=== PATIENT | female | born 1965 | race Caucasian/White ===

== ENCOUNTER 2019-12-07 11:24 | Observation (INO) | payer OTHER ==
[~2019-12-07] VITALS: Ht 162.6 cm; Wt 76.7 kg
--- NOTE | ~2019-12-07 | CON ---
[address] [address] CONSULTATION Name: SCOTT QUIÑONES Room: [address] [place]#: [id number] Admission: 12/07/19 Attend Phys: Yuki Horton Discharge: Date of : 63 Report #: [id number] THIS REPORT FOR: //name// cc: Kirill Gunter MD, Tuongvan T. MD ~ THIS REPORT FOR: //name// CC: Kirill Min DATE OF SERVICE: 12/08/2019 HISTORY OF PRESENT ILLNESS: This is a 54-year-old female patient who was admitted yesterday with headache. The patient was seen yesterday and today and this is a combined note. I discussed the patient with Dr. Min, the admitting physician. This patient was admitted with headache. She said that the headache started about a month ago, but became worse recently. She indicated that it started in relation to starting some antihypertensive. She also started statin and she also think that may be contributing to the patient's problem. In any event, the headache has fully resolved this morning. Headache was generalized without any aggravating or relieving factor. REVIEW OF SYSTEMS: Indicate that this patient has a history of rheumatoid arthritis. 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 She is on treatment for that. She is also treatment for fibromyalgia. She takes Cymbalta for a combination of depression and fibromyalgia. She is also on gabapentin. She indicates she is on gabapentin because of the fibromyalgia. That was a relevant 14-point review of system. PAST MEDICAL HISTORY: Positive for rheumatoid arthritis, but she has no history of vasculitis. She did have some nausea, vomiting, which has also resolved. She has a history of enlarged heart, ADHD, but all those histories are poorly defined. FAMILY HISTORY: Unremarkable. SOCIAL HISTORY: She smokes. PHYSICAL EXAMINATION: The patient's examination was carried out yesterday and today. Today, she is alert, responsive, able to follow simple and complex command. Cranial nerve examinations appear unremarkable. Her memory looks unremarkable. She moves all 4 extremities. She has a good position sense. Her reflexes are well elicited in the lower extremities and her plantars appeared to be downgoing on both sides, the best I can tell. There is no meningeal sign. There [place] [address] CONSULTATION Name: SCOTT QUIÑONES Room: [address] Marti#: [id number] Admission: 12/07/19 Attend Phys: Yuki Horton Discharge: Date of : 63 Report #: [id number] DIAGNOSTIC STUDIES: MRI shows chronic disease, but no acute changes. MRV was okay. MRI does appear to be showing chronic changes. IMPRESSION: I am not sure what the etiology of the patient's headache was. She does have chronic changes on MRI, but that will not explain the patient's headache. Her sed rate is normal. RECOMMENDATION: I discussed with the patient that because of her medication, she may be immune suppressed and the next step will be doing the spinal tap. She does not want to do the spinal tap. She indicates that if she changes her mind or if her symptoms reoccur, she will consider. I will check an MRA on her and she is agreeable for that. That is to make sure she does not have any vasculitis. Her echocardiogram is already ordered and she does have a history of enlarged heart and we will see what does that show. She is on statin. She is already on aspirin until the MRA shows something different or echocardiogram shows anything different or if symptoms reoccur, we can continue to observe her. Thank you very much for this referral and if you have any question, please feel free to contact me. More than 50 minutes of time was spent taking care of this patient today and yesterday and majority was spent counseling and coordinating care. Dr. Woods will follow up this patient with you from tomorrow. By: 1510 [id number] García MD /bree
[~2019-12-07 11:24] MED LIST: CELEXA40 MG PO; MOBIC7.5 M1 PO; NORFLEX100 MG PO; RITALIN LA20 MG PO
[2019-12-07 11:28] VITALS: BP 165/71
[2019-12-07 11:50] LABS: ABSOLUTE BASOPHILS 0.1 thou/uL (0.0-0.2); ABSOLUTE LYMPHOCYTES 1.9 thou/uL (0.8-5.3); ABSOLUTE MONOCYTES 0.8 thou/uL (0.0-1.2); BASOPHILS 0.6 %; EOSINOPHILS 0.4 %; HEMATOCRIT 45.3 % (37.0-47.0); HEMOGLOBIN 15.7 gm/dL (12.0-15.0); LYMPHOCYTES 19.4 %; MCH 30.2 pg (26.0-34.0); MCHC 34.7 g/dL (28.0-37.0); MPV 8.8 fl. (7.2-11.1); NUCLEATED RBCS 0 /100WBC; PLATELET COUNT* 203 thou/uL (150-400); POLYS 71.6 %; RDW-CV 13.4 % (10.5-14.5); WBC 9.7 thou/uL (4.0-11.0)
[2019-12-07 11:58] LABS: CALCIUM 9.3 mg/dL (8.5-10.1); CREATININE 0.7 mg/dL (0.6-1.3); POTASSIUM 3.1 mmol/L (3.5-5.1)
[2019-12-07 12:02] LABS: ALBUMIN 4.3 g/dL (3.4-5.0); MAGNESIUM 1.9 mg/dL (1.8-2.4); TOTAL BILIRUBIN 0.4 mg/dL (<0.1-1.0); TOTAL PROTEIN 8.2 g/dL (6.4-8.2)
[2019-12-07 13:03] LABS: URINE BILIRUBIN NEGATIVE (Negative); URINE BLOOD NEGATIVE (Negative); URINE CLARITY CLEAR; URINE COLOR YELLOW; URINE GLUCOSE-RANDOM NEGATIVE (Negative); URINE KETONES TRACE (Negative); URINE LEUKOCYTES-REFLEX NEGATIVE (Negative); URINE NITRITE-REFLEX NEGATIVE (Negative); URINE PROTEIN NEGATIVE (Negative); URINE SPECIFIC GRAVITY 1.015 (1.005-1.030); URINE UROBILINOGEN 0.2 E.U./dl (0.2-1.0)
[2019-12-07 13:42] LABS: AMP/METHAMP Negative (Negative); BARBITURATES Negative (Negative); BENZODIAZEPINES Negative (Negative); COCAINE Negative (Negative); METHADONE Negative (Negative); OPIATES Negative (Negative); PCP Negative (Negative); THC Negative (Negative)
--- NOTE | 2019-12-07 14:45 | EKG ---
[place] [address] ELECTROCARDIOGRAM REPORT Name: SCOTT QUIÑONES Room: [place] [address] ADM IN [facility]#: [id number] Admission: 12/07/19 Attend Phys: Ole Min Discharge: Date of : 63 Date of Service: 12/07/19 1139 Report #: [id number] THIS REPORT FOR: //name// [place] [facility] Test Date: 2019-12-07 Test Time: 11:39:13 Pat Name: SCOTT QUIÑONES Department: Room: [facility] Gender: F Litigation Partner: : 1965 Requested By: Lynn Garcia Order Number: [id number] MD: Jerrell Lomeli Measurements Intervals Otter Rate: 69 P: 65 IN: 166 QRS: 36 QRSD: 84 T: QT: 548 QTc: 588 Interpretive Statements Sinus rhythm Nonspecific T abnrm, anterolateral leads Prolonged QT interval No previous ECG available for comparison Electronically Signed On 12-07-2019 14:43:38 CDT by Jerrell Lomeli [email or web address] <ELECTRONICALLY SIGNED> By: Jerrell Lomeli MD, FAC 12/07/19 1443 1139 1139 Jerrell Lomeli MD, [facility] /EPI
--- NOTE | 2019-12-07 15:37 | NUR ---
NEUROLOGY CONSULT DR. MATTSON AT [facility]
[2019-12-07 15:54] VITALS: BP 148/58
[2019-12-07 17:20] VITALS: BP 155/81
[2019-12-07] MEDS ORDERED: NEURONTIN300 MG PO (17:50)
[2019-12-07] MEDS ORDERED: LEFLUNOMIDE 1010 MG PO (17:50)
[2019-12-07] MEDS ORDERED: B COMPLEX1 EACH PO (17:51)
[2019-12-07] MEDS ORDERED: SUPER THERAVIT1 EACH PO (17:52)
[2019-12-07] MEDS ORDERED: PREDNISONE 5 MG5 M1 PO (17:53)
[2019-12-07] MEDS ORDERED: CHLORTHALIDONE25 MG PO (17:54)
[2019-12-07] MEDS ORDERED: OMEPRAZOLE40 MG PO (17:55)
[2019-12-07] MEDS ORDERED: ENBREL50 MG/1 M1 SUBQ (17:56)
[2019-12-07] MEDS ORDERED: DULOXETINE HCL30 MG PO (17:58)
[2019-12-07] MEDS ORDERED: PROAIR HFA8.5 GM INH (17:59)
[2019-12-07] MEDS ORDERED: NORVASC5 M1 PO (18:00)
[2019-12-07] MEDS ORDERED: CRESTOR20 MG PO (18:02)
--- NOTE | 2019-12-07 18:33 | NUR ---
YANIV RESTING IN BED. SLIGHT HEADACHE THAT PATIENT STATES HAS BEEN PRESENT FOR APPROX 1 MONTH. VSS. AOX4. HOME MED REC COMPLETD WITH ASSISTANCE OF PATIENT AND MED REC SENT OVER FROM HER PROVIDERS OFFICE. SHE WAS ORIENTED TO ROOM AND PLAN OF CARE. HOURLY ROUNDING COMPLETED FOR PATIENT SAFETY.
[2019-12-07 20:00] VITALS: BP 137/74
[2019-12-08] VITALS: BP 120/55
[2019-12-08 04:00] VITALS: BP 132/59
--- NOTE | 2019-12-08 05:55 | NUR ---
ASSUMED PT CARE AT APPROX 1930. PT IS AWAKE AND ORIENTED X4. 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 PT DENIES PAIN OF THIS TIME. PT IS ABLE TO SLEEP MOST OF THE NIGHT. CALL LIGHT WITHIN REACH. HOURLY ROUNDING DONE FOR PT SAFETY.
[2019-12-08 08:00] VITALS: BP 134/64
[2019-12-08 12:30] VITALS: BP 128/65
[2019-12-08] MEDS ORDERED: MECLIZINE HCL25 M1 PO (14:34)
--- NOTE | 2019-12-08 15:04 | 2DMMODE ---
[place] [address] 2 D/M-MODE ECHOCARDIOGRAM Name: SCOTT QUIÑONES Room: [address] M.R.#: [id number] Admission: 12/07/19 Attend Phys: Ole Min Discharge: Date of : 63 Date of Service: 12/08/19 1503 Report #: [id number] THIS REPORT FOR: cc: Kirill Gunter MD, Tuongvan T. MD Liston, Michael J. MD [facility] ~ APPROVED REPORT Study performed: 12/08/2019 13:53:21 EXAM: Comprehensive 2D, Doppler, and color-flow Echocardiogram Patient Location: In-Patient Room #: 220 Status: routine BSA: 1.80 HR: 71 bpm BP: 128/65 mmHg Rhythm: NSR Other Information Study Quality: Good Indications Dizziness and headache 2D Dimensions IVSd: 12.12 (7-11mm) LVOT Diam: 20.98 (18-24mm) LVDd: 44.18 mm PWd: 10.52 (7-11mm) Ascending Ao: 34.68 (22-36mm) LVDs: 30.33 (25-40mm) Aortic Root: 33.87 mm Volumes Left Atrial Volume (Systole) LA ESV Index: 29.30 mL/m2 Aortic Valve AoV Peak Kan.: 1.81 m/s AO Peak Gr.: 13.09 mmHg LVOT Max P.60 mmHg AO Mean Gr.: 6.93 mmHg LVOT Mean P.07 mmHg LVOT Max V: 1.07 m/s AO V2 VTI: 34.81 cm LVOT Mean V: 0.66 m/s WILL (VTI): 2.09 cm2 LVOT V1 VTI: 21.05 [place] [address] 2 D/M-MODE ECHOCARDIOGRAM Name: SCOTT QUIÑONES Room: [address]#: [id number] Admission: 12/07/19 Attend Phys: Ole Min Discharge: Date of : 63 Date of Service: 12/08/19 1503 Report #: [id number] Mitral Valve E/A Ratio: 2.02 MV Decel. Time: 186.47 ms MV E Max Kan.: 1.12 m/s MV PHT: 54.08 ms MVA (PHT): 4.07 cm2 TDI E/Lateral E': 8.00 E/Medial E': 10.18 Medial E' Kan.: 0.11 m/s Lateral E' Kan.: 0.14 m/s Pulmonary Valve PV Peak Kan.: 0.90 m/s PV Peak Gr.: 3.27 mmHg Left Ventricle The left ventricle is normal size. There is normal LV segmental wall motion. There is normal left ventricular wall thickness. Left ventricular systolic function is normal. LVEF is 55-60%. The left ventricular diastolic function is normal. Right Ventricle The right ventricle is normal size. The right ventricular systolic function is normal. Atria The left atrium size is normal. The right atrium size is normal. Aortic Valve Aortic valve appears possibly be bicuspid. Turns mild valve thickening. No aortic regurgitation is present. There is no aortic valvular stenosis. Mitral Valve The mitral valve is normal in structure. There is no mitral valve regurgitation noted. No evidence of mitral valve stenosis. Tricuspid Valve The tricuspid valve is normal in structure. Unable to assess PA pressure. Trace tricuspid regurgitation. Pulmonic Valve The pulmonary valve is normal in structure. There is no pulmonic [place] [address] 2 D/M-MODE ECHOCARDIOGRAM Name: SCOTT QUIÑONES Room: [address]#: [id number] Admission: 12/07/19 Attend Phys: Ole Min Discharge: Date of : 63 Date of Service: 12/08/19 1503 Report #: [id number] Great Vessels The aortic root is normal in size. IVC is normal in size and collapses >50% with inspiration. Pericardium There is no pericardial effusion. <Conclusion> The left ventricle is normal size. There is normal left ventricular wall thickness. Left ventricular systolic function is normal. LVEF is 55-60%. The left ventricular diastolic function is normal. Aortic valve appears possibly be bicuspid. Turns mild valve thickening. No aortic regurgitation is present. There is no aortic valvular stenosis. Trace tricuspid regurgitation. IVC is normal in size and collapses >50% with inspiration. Aortic valve is fairly well visualized and appears to be possibly bicuspid, however, in the absence of any insufficiency or stenosis this seems suspect. Consider transesophageal echocardiogram if clinically indicated. <ELECTRONICALLY SIGNED> By: J Luis Lomeli MD, FACC 12/08/19 1503 1503 1503 J Luis Lomeli MD, FACC /INF
--- NOTE | 2019-12-08 15:46 | NUR ---
CM attempted to contact Pt via her room phone, cell phone and Pt's , unable to reach anyone. Message left on Pt's cell phone requesting call back to complete assessment. Following.
[2019-12-08 17:13] VITALS: BP 129/79
--- NOTE | 2019-12-08 19:51 | NUR ---
PT. VSS, AOX4, SR IN THE 60S ON MONITOR, DENIES PAIN. PT. C/O OF N/V AND DIZZINESS, MEDS ADMINISTERED AND RELIEF OBTAINED. IVF INFUSING WITHOUT COMPLICATIONS. PT. ON ROOM AIR, NICOTINE PATCH ORDERED. HOURLY ROUNDING PERFORMED. CALL LIGHT AND PERSONAL BELONGINGS PLACED WITHIN REACH.
[2019-12-08 20:00] VITALS: BP 117/74
[2019-12-09 00:07] VITALS: BP 131/67; BP 184/64
[2019-12-09 04:33] VITALS: BP 130/72
--- NOTE | 2019-12-09 06:24 | NUR ---
ASSUMED PT CARE AT APPROX 1930. PT IS AWAKE AND ORIENTED X4. 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 PT DENIES PAIN OF THIS TIME. PT IS ABLE TO SLEEP MOST OF THE NIGHT. PT STATES SHE IS NOT DIZZY/LIGHTHEADED. CALL LIGHT WITHIN REACH. HOURLY ROUNDING DONE FOR PT SAFETY.
[2019-12-09 08:00] VITALS: BP 130/56
[2019-12-09] MEDS ORDERED: BACTRIM DS TAB1 EACH PO (10:37)
[2019-12-09] MEDS ORDERED: ASPIRIN325 PO (11:50)
[2019-12-09 12:04] VITALS: BP 130/56
[2019-12-09 12:29] VITALS: BP 149/71
[2019-12-09 12:39] LABS: CHOLESTEROL 129 mg/dL (<200); HDL CHOLESTEROL 45 mg/dL (>40); LDL CHOLESTEROL 58 mg/dL (<100); TC:HDL 2.9 Ratio (Not establshd); TRIGLYCERIDE 132 mg/dL (<150); VLDL 26 mg/dL (<40)
[2019-12-09 12:40] LABS: SERUM ASSESSMENT Clear
--- NOTE | 2019-12-09 12:42 | NUR ---
PT HAS RESTED T/O DAY WITHOUT COMPAINT. VSS ON RA. SR ON THE MONITOR. PT TO BE DCD TO HOME. DISCHARGE INSTRUCTIONS REVIEWED WITH PT AND PT UNDERSTOOD WITHOUT FURTHER QUESTIONS.
== END 2019-12-09 13:15 | disposition home or self-care (01) ==
LOC: M.ERS 11:24 → M.2W 13:19 → M.TBA-ER 13:19 → M.2W 17:31
PROVIDERS: Nurse Practitioner Family; ADMIT Internal Medicine
DX: R42 Dizziness and giddiness (principal); R51 Headache; F17.210 Nicotine dependence, cigarettes, uncomplicated; F90.9 Attention-deficit hyperactivity disorder, unspecified type; F32.9 Major depressive disorder, single episode, unspecified; G47.30 Sleep apnea, unspecified; R11.10 Vomiting, unspecified; I10 Essential (primary) hypertension; E66.9 Obesity, unspecified; Z98.890 Other specified postprocedural states; Z90.710 Acquired absence of both cervix and uterus; Z85.3 Personal history of malignant neoplasm of breast